=== PATIENT | female | born 1945 | race Caucasian/White ===

== ENCOUNTER 2017-12-08 22:12 | Emergency (ER) | payer MEDICARE, OTHER ==
[2017-12-08 23:16] LABS: Bilirubin Negative (Negative); Blood, Urine Large (Negative); Clarity Clear (Clear); Glucose, Urine (Dipstick) Negative (Negative); Leukocyte Trace (Negative); Nitrite Negative (Negative); Protein, Urine (Dipstick) Negative (Neg-Trace); Urobilinogen 0.2 mg/dL (0.2-1.0); pH, Urine 5.5 (5.0-9.0)
[2017-12-08 23:17] LABS: #Basophils 0.1 thou/uL (0.0-0.2); #Eosinphils 0.1 thou/uL (0.0-0.7); #Lymphocytes 1.5 thou/uL (1.20-3.40); #Neutrophils 10.3 thou/uL (1.40-6.50); %Basophils 0.5 % (0.0-1.0); %Eosinophils 0.7 % (0.0-10.0); %Lymphocytes 11.4 % (21.0-51.0); %Monocytes 7.5 % (0.0-10.0); Hemoglobin 14.5 g/dL (12.0-16.0); Mean Corpuscular HGB CONC 33.4 g/dL (32.0-36.0); Mean Corpuscular Hemoglobin 30.5 pg (27.0-31.0); Mean Corpuscular Volume 91.4 fl (81.0-99.0); Mean Platelet Volume 6.9 fL (7.4-10.4); Platelet Count 238 thou/uL (130-400); RBC Distribution Width 10.9 % (11.5-14.5); Red Blood Cell (RBC) Count 4.76 mill/uL (4.20-5.40); White Blood Cell (WBC) Count 12.9 thou/uL (4.8-10.8)
[2017-12-08] MEDS ORDERED: Sodium Chloride For Inhalation 0.9% 3 ML NEB ONE (23:21)
[2017-12-08] MEDS ORDERED: Albuterol Sulfate 2.5 mg/0.5 ml Neb ONE (23:21)
[2017-12-08 23:24] LABS: Bacteria/HPF None Seen HPF (None Seen); Hyaline Casts/LPF 0-3 HYALINE CAST LPF (0-3 Hyaline); WBC/HPF 0-3 HPF (0-3)
[2017-12-08 23:31] LABS: Anion Gap 18 mmol/L (10-20); BUN (Urea Nitrogen) 13 mg/dL (9.8-20.1); Calc. Creatinine Clearance 0 mL/min (70-130); Calcium 10.1 mg/dL (7.8-10.44); Carbon Dioxide 24 mmol/L (23-31); Chloride 103 mmol/L (98-107); Estimated GFR-MDRD 65; Glucose 143 mg/dL (80-115); Potassium 3.8 mmol/L (3.5-5.1); Sodium 141 mmol/L (136-145)
--- NOTE | 2017-12-08 23:50 | RAD ---
CHEST TWO VIEWS: History: Chest pain. Comparison: None. FINDINGS: Lungs are clear. No pneumothorax or effusion. Cardiac silhouette and mediastinal contours are within normal limits. IMPRESSION: Mild lung hyperinflation. No acute intrathoracic abnormality. POS: [facility]
--- NOTE | 2017-12-09 07:02 | CT ---
NONCONTRAST ABDOMEN AND PELVIS CT: Date: 12/08/17 HISTORY: Left back pain, recent onset. FINDINGS: There is partially imaged patchy density at the posterior lung bases, incompletely assessed. There is scattered atherosclerotic vascular disease. Evidence of prior cholecystectomy. There is no urolithia sis. No evidence of hydronephrosis. Moderate distention of the unopacified urinary bladder. There are numerous colonic diverticula. No free air or portal venous gas. Evaluation is limited without the pr esence of IV or enteric contrast. Scattered osseous degenerative changes are present. There is nonspe cific heterogeneity of the uterus with associated calcification. IMPRESSION: 1. No urolithiasis or obstructive uropathy. 2. Colonic diverticulosis. 3. Limited assessment without the presence of IV or enteric contrast. POS: [facility]
== END 2017-12-09 00:22 | disposition home or self-care (01) ==
LOC: SCSER 22:12
DX: R07.81 Pleurodynia (principal); D72.829 Elevated white blood cell count, unspecified; J45.909 Unspecified asthma, uncomplicated; E78.5 Hyperlipidemia, unspecified; I10 Essential (primary) hypertension
CPT/HCPCS: 71046; 74176; 80048; 81003; 81015; 85025; 85379; 94640; J7611

== ENCOUNTER 2017-12-22 09:47 | Emergency (ER) | payer MEDICARE, OTHER ==
--- NOTE | 2017-12-22 10:35 | RAD ---
CHEST 2 VIEWS: Date: 12/22/17 HISTORY: Cough. COMPARISON: Chest 1 view dated 12/08/17. FINDINGS: Lungs are clear. No pneumothorax or effusion. Cardiac silhouette and mediastinal contours within norm al limits. Mild levoscoliosis. Right upper quadrant surgical clips. IMPRESSION: No acute intrathoracic abnormality or significant change. POS: [facility]
[2017-12-22 10:37] LABS: Bilirubin Negative (Negative); Blood, Urine Moderate (Negative); Clarity Clear (Clear); Glucose, Urine (Dipstick) Negative (Negative); Leukocyte Negative (Negative); Nitrite Negative (Negative); Protein, Urine (Dipstick) Negative (Neg-Trace); Urobilinogen 0.2 mg/dL (0.2-1.0); pH, Urine 6.5 (5.0-9.0)
[2017-12-22 10:48] LABS: WBC/HPF None Seen HPF (0-3)
[2017-12-22 10:49] LABS: Bacteria/HPF Rare-Few HPF (None Seen)
== END 2017-12-22 11:06 | disposition home or self-care (01) ==
LOC: SCSER 09:47
DX: J06.9 Acute upper respiratory infection, unspecified (principal); I10 Essential (primary) hypertension; E78.5 Hyperlipidemia, unspecified; Z79.899 Other long term (current) drug therapy
CPT/HCPCS: 71046; 81003; 81015

== ENCOUNTER 2018-01-01 09:50 | Outpatient (CLI) | payer MEDICARE, OTHER ==
[~2018-01-01 09:50] MED LIST: Iopamidol 370 76% 100 ML VIAL ONE
--- NOTE | 2018-01-01 12:36 | CT ---
CT CHEST WITH CONTRAST: HISTORY: Cough x3 weeks. The patient tested positive for flu 10 days ago. Assess for pneumonia. COMPARISON: None. CORRELATION: Stone CT from 12/08/2017. TECHNIQUE: A post contrast chest CT was performed in the axial plane. Coronal reformatted images were submitted for interpretation. FINDINGS: No mediastinal mass, lymphadenopathy, or hematoma. Heart size is within normal limits. No pericardi al effusion. The thoracic aorta and abdominal aorta have an overall normal caliber. No periaortic f at stranding. The central pulmonary arteries are adequately opacified. No filling defect. The upper solid organs are unremarkable. The gallbladder is surgically absent. The trachea and central bronchi are patent. No masses or consolidation. No evidence of lobar pneumo christina. Minimal atelectatic changes in both lower lobes noted. Minimal nonspecific opacity at the medi al aspect of the left lower lobe. No pneumothorax or pleural effusion. No lytic or blastic lesions of the osseous structures. IMPRESSION: No CT evidence of pneumonia. POS: [facility]
== END 2018-01-01 09:51 | disposition home or self-care (01) ==
LOC: SCSCT 09:50
PROVIDERS: ATTEND Nurse Practitioner Family
DX: J18.9 Pneumonia, unspecified organism (principal)
CPT/HCPCS: 71260

== ENCOUNTER 2018-10-02 13:09 | Outpatient (CLI) | payer MEDICARE, OTHER | END 2018-10-02 13:10 | disposition home or self-care (01) | LOC: BICMAMMO 13:09 | PROVIDERS: ATTEND Family Medicine | DX: Z12.31 Encounter for screening mammogram for malignant neoplasm of breast (principal); R92.1 Mammographic calcification found on diagnostic imaging of breast | CPT/HCPCS: 77063; 77067 ==

== ENCOUNTER 2019-02-28 13:32 | Emergency (ER) | payer MEDICARE, OTHER ==
--- NOTE | 2019-02-28 15:07 | RAD ---
FRadiograph right knee 4 views: HISTORY: 74-year-old female status post traumatic injury to right knee FINDINGS: Diffuse osteopenia. No high-grade DJD. No joint effusion. No fracture. IMPRESSION: 1. Osteopenia. 2. No fracture.
--- NOTE | 2019-02-28 15:08 | RAD ---
FRadiograph left knee 4 views: HISTORY: 74-year-old female status post acute traumatic injury to left knee FINDINGS: No fracture or DJD. Osteopenia. No joint effusion. IMPRESSION: 1. Osteopenia. 2. Otherwise negative.
--- NOTE | 2019-02-28 15:09 | RAD ---
FRadiograph right wrist 3 views: 02/28/2019 2:41 PM HISTORY: Traumatic wrist pain in 74-year-old female FINDINGS: Diffuse osteopenia. Although no fracture is visualized, if there is snuffbox tenderness that would cho ggest an occult scaphoid fracture, the general recommendation is immobilization and follow-up imaging in 5-10 days. Alignment is normal. IMPRESSION: 1. Osteopenia. 2. No fracture identified.
== END 2019-02-28 15:54 | disposition home or self-care (01) ==
LOC: SCSER 13:32
DX: S83.92XA Sprain of unspecified site of left knee, initial encounter (principal); S83.91XA Sprain of unspecified site of right knee, initial encounter; S60.211A Contusion of right wrist, initial encounter; M81.0 Age-related osteoporosis without current pathological fracture; E78.5 Hyperlipidemia, unspecified; I10 Essential (primary) hypertension; Z79.899 Other long term (current) drug therapy; W01.0XXA Fall on same level from slipping, tripping and stumbling without subsequent striking against object, initial encounter

== ENCOUNTER 2019-05-10 04:16 | Emergency (ER) | payer MEDICARE, OTHER ==
--- NOTE | 2019-05-10 08:19 | RAD ---
TWO VIEWS OF THE CHEST: COMPARISON: 12/22/2017. HISTORY: Difficulty breathing. FINDINGS: Two views of the chest show normal sized cardiomediastinal silhouette. There is no evidence of consol idation, mass, or pleural effusion. The bones are unremarkable. IMPRESSION: No evidence of acute cardiopulmonary disease. POS: [facility]
== END 2019-05-10 05:36 | disposition home or self-care (01) ==
LOC: SCSER 04:16
DX: J45.909 Unspecified asthma, uncomplicated (principal); E78.5 Hyperlipidemia, unspecified; I10 Essential (primary) hypertension; Z79.51 Long term (current) use of inhaled steroids; Z79.899 Other long term (current) drug therapy
CPT/HCPCS: 71046; 94640; J7620

== ENCOUNTER 2019-09-08 23:48 | Emergency (ER) | payer MEDICARE, OTHER ==
[2019-09-09 00:35] LABS: #Basophils 0.1 thou/uL (0.0-0.2); #Eosinphils 0.2 thou/uL (0.0-0.7); #Lymphocytes 1.7 thou/uL (1.20-3.40); #Monocytes 0.6 thou/uL (0.11-0.59); #Neutrophils 3.5 thou/uL (1.40-6.50); %Basophils 1.2 % (0.0-1.0); %Eosinophils 3.3 % (0.0-10.0); %Lymphocytes 28.4 % (21.0-51.0); %Monocytes 9.6 % (0.0-10.0); %Neutrophils 57.5 % (42.0-75.0); Hemoglobin 13.8 g/dL (12.0-16.0); Mean Corpuscular HGB CONC 34.9 g/dL (32.0-36.0); Mean Corpuscular Hemoglobin 32.6 pg (27.0-31.0); Mean Corpuscular Volume 93.2 fL (78.0-98.0); Mean Platelet Volume 8.5 fL (7.4-10.4); Platelet Count 198 thou/uL (130-400); RBC Distribution Width 11.2 % (11.5-14.5); Red Blood Cell (RBC) Count 4.25 mill/uL (4.20-5.40)
[2019-09-09 00:44] LABS: ALT (SGPT) 18 U/L (8-55); AST (SGOT) 22 U/L (5-34); Albumin 4.3 g/dL (3.4-4.8); Alkaline Phosphatase 65 U/L (40-110); Anion Gap 15 mmol/L (10-20); BUN (Urea Nitrogen) 13 mg/dL (9.8-20.1); Bilirubin, Total 0.5 mg/dL (0.2-1.2); Calc. Creatinine Clearance 0 mL/min (70-130); Calcium 9.4 mg/dL (7.8-10.44); Carbon Dioxide 27 mmol/L (23-31); Chloride 106 mmol/L (98-107); Estimated GFR-MDRD 62; Globulin 2.2 g/dL (2.4-3.5); Glucose 111 mg/dL (83-110); Potassium 4.5 mmol/L (3.5-5.1); Protein, Total 6.5 g/dL (6.0-8.3); Sodium 143 mmol/L (136-145)
--- NOTE | 2019-09-09 07:03 | RAD ---
RADIOGRAPH CHEST 1 VIEW: DATE: 09/09/2019 12:27 AM HISTORY: 74-year-old female with dyspnea FINDINGS: There are no airspace densities, pulmonary edema, pneumothorax, or cardiomegaly. The lateral costophr enic angles are sharp. IMPRESSION: No acute cardiopulmonary findings.
== END 2019-09-09 01:14 | disposition home or self-care (01) ==
LOC: SCSER 23:48
DX: R53.83 Other fatigue (principal); I10 Essential (primary) hypertension; E78.5 Hyperlipidemia, unspecified; Z79.899 Other long term (current) drug therapy
CPT/HCPCS: 36415; 71045; 80053; 84443; 84484; 85025; 93005